=== PATIENT | male | born 1980 | race African-American/Black ===

== ENCOUNTER 2017-08-10 12:46 | Emergency (ER) | payer SELFPAY ==
[~2017-08-10] VITALS: Ht 172.7 cm; Wt 77.3 kg
[~2017-08-10 12:46] MED LIST: DIPH25 PO; RISP1 PO
[2017-08-10 13:28] LABS: GLUCOSE,POINT OF CARE 87 MG/DL (70-110)
[2017-08-10 15:37] VITALS: BP 126/70
== END 2017-08-10 15:49 | disposition home or self-care (01) ==
LOC: EMS 12:56
DX: F10.129 Alcohol abuse with intoxication, unspecified (principal); F20.9 Schizophrenia, unspecified; F17.210 Nicotine dependence, cigarettes, uncomplicated; Z59.0 Homelessness
CPT/HCPCS: 82962; 99283; 99406

== ENCOUNTER 2018-03-12 18:50 | Emergency (ER) | payer SELFPAY ==
[~2018-03-12] VITALS: Ht 172.7 cm; Wt 71.8 kg
[2018-03-12 19:04] VITALS: BP 115/79
== END 2018-03-12 21:00 | disposition left against medical advice (07) ==
LOC: EMS 18:52
DX: F10.129 Alcohol abuse with intoxication, unspecified (principal); R42 Dizziness and giddiness; Z53.21 Procedure and treatment not carried out due to patient leaving prior to being seen by health care provider

== ENCOUNTER 2019-08-22 12:38 | Emergency (ER) | payer SELFPAY ==
[~2019-08-22] VITALS: Ht 180.3 cm; Wt 81.8 kg
[2019-08-22 13:00] VITALS: BP 143/86
== END 2019-08-22 15:44 | disposition left against medical advice (07) ==
LOC: EMS 12:40
DX: M79.604 Pain in right leg (principal); Z53.21 Procedure and treatment not carried out due to patient leaving prior to being seen by health care provider